=== PATIENT | male | born 1985 | race Caucasian/White ===

== ENCOUNTER 2017-06-04 14:14 | Emergency (ER) | payer OTHER ==
[2017-06-04 14:24] VITALS: BP 106/60
--- NOTE | 2017-06-04 14:51 | ED Physician Documentation ---
PD HPI OPHTHO - Stated complaint Stated Complaint: FOREIGN OBJ IN EYE - Chief complaint Chief Complaint: Heent - History obtained from History obtained from: Patient - History of Present Illness Timing - onset: Yesterday Timing - details: Abrupt onset, Still present Location: Left Quality / character: Sharp (feels like object in eye.) Associated symptoms: Tearing, FB sensation. 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 Noted FB come into eye from side of glasses (not direct shoot/ impact).) Review of Systems Eyes: denies: Loss of vision, Decreased vision, Photophobia Skin: denies: Laceration (s) PD PAST MEDICAL HISTORY - Past Medical History Past Medical History: No Cardiovascular: None Respiratory: None Neuro: None Endocrine/Autoimmune: None GI: None : None HEENT: None Psych: None Musculoskeletal: None Derm: None - Past Surgical History Past Surgical History: Yes Ortho: Other - Present Medications Home Medications: Ambulatory Orders Medication Instructions Recorded Confirmed Meloxicam [Mobic] 15 mg PO BID 06/04/17 06/04/17 - Allergies Allergies/Adverse Reactions: Allergies Allergy/AdvReac Type Severity Reaction Status Date / Time No Known Drug Allergies Allergy Verified 06/04/17 14:22 - Social History Does the pt smoke?: No Smoking Status: Former smoker Does the pt drink ETOH?: Yes Does the pt have substance abuse?: No - Immunizations Immunizations are current?: Yes PD ED PE NORMAL - Vitals Vital signs reviewed: Yes - General General: Alert and oriented X 3, No acute distress, Well developed/nourished - HEENT HEENT: PERRL, EOMI PD ED PE EXPANDED - HEENT HEENT Visual: 1 - abrasion (with small metal FB) - Eyes Eyes: Corneal FB, Corneal abrasion (residual after FB removal. ) Results - Vitals Vitals: Oxygen O2 Source Room air PD MEDICAL DECISION MAKING - ED course Complexity details: considered differential (small metal speck in cornea without rust ring. Removed with needle edge. ), d/w patient Departure - Departure Disposition: 01 Home, Self Care Clinical Impression: Corneal foreign body Qualifiers: Encounter type: initial encounter Laterality: left Qualified Code(s): T15.02XA - Foreign body in cornea, left eye, initial encounter Condition: Stable Record reviewed to determine appropriate education?: Yes Instructions: ED Foreign Body Cornea Comments: Tylenol or ibuprofen if needed for pains. He can use a numbing eyedrops periodically today if needed for discomfort. Need to be out of the wind and dust and just be resting indoors. Do not use a more than a day. Recheck with [facility] if not better by Tuesday. Return sooner if worse. Discharge Date/Time: 06/04/17 15:25
== END 2017-06-04 15:25 | disposition home or self-care (01) ==
LOC: ED 14:14
DX: T15.02XA Foreign body in cornea, left eye, initial encounter (principal); W22.8XXA Striking against or struck by other objects, initial encounter
CPT/HCPCS: 99282; 99283